=== PATIENT | male | born 1940 | race Asian ===

== ENCOUNTER 2017-01-04 06:20 | Day surgery (SDC) | payer OTHER ==
[~2017-01-04] VITALS: Ht 165.1 cm; Wt 63.0 kg
[2017-01-04] MEDS ORDERED: SODIUM CHLORIDE 0.9% 1,000 ML IV ONE ×2 (06:43→07:00)
[2017-01-04] MEDS ORDERED: SITA100 PO (06:59)
[2017-01-04] MEDS ORDERED: TIOT4MIS2 PO (06:59)
[2017-01-04] MEDS ORDERED: APIX5TAB PO (06:59)
[2017-01-04] MEDS ORDERED: FERR-89 PO (06:59)
[2017-01-04] MEDS ORDERED: AUD NEB (06:59)
[2017-01-04] MEDS ORDERED: BACTDSB PO (06:59)
[2017-01-04] MEDS ORDERED: GLUC100019 PO (06:59)
[2017-01-04] MEDS ORDERED: ASCO100T12 PO (06:59)
[2017-01-04] MEDS ORDERED: ADV500 IH (06:59)
[2017-01-04] MEDS ORDERED: OMEG-12 PO (06:59)
[2017-01-04] MEDS ORDERED: DILT60 PO (06:59)
[2017-01-04] MEDS ORDERED: TAMS0.4C32 PO (06:59)
[2017-01-04] MEDS ORDERED: CARV3 PO (06:59)
[2017-01-04] MEDS ORDERED: MONT10TA21 PO (06:59)
[2017-01-04] MEDS ORDERED: FLUT16H NASAL (06:59)
[2017-01-04] MEDS ORDERED: FAMO20 PO (06:59)
[2017-01-04] MEDS ORDERED: METF500T4 PO (06:59)
[2017-01-04] MEDS ORDERED: MULT1CAP32 PO (06:59)
[2017-01-04] MEDS ORDERED: CALC-51 PO (06:59)
[2017-01-04] MEDS ORDERED: FINA5TAB41 PO (06:59)
[2017-01-04] MEDS ORDERED: CHON250C PO (06:59)
[2017-01-04] MEDS ORDERED: BENZ-26 PO (06:59)
[2017-01-04] MEDS ORDERED: PRED10 PO (06:59)
[2017-01-04] MEDS ORDERED: MIDAZOLAM HCL 2 MG/2 ML VIAL ONE (07:08)
[2017-01-04] MEDS ORDERED: FentaNYL CITRATE-PF 100 MCG/2 ML VIAL ONE (07:08)
[2017-01-04 07:13] LABS: GLUCOSE,POINT OF CARE 107 MG/DL (70-110)
[2017-01-04] MEDS ORDERED: MethylPREDNISolone SOD SUCC 125 MG/2 ML VIAL ONE (08:02)
[2017-01-04] MEDS ORDERED: MethylPREDNISolone SOD SUCC 125 MG/2 ML VIAL IVP ONE (09:00)
[2017-01-04] MEDS ORDERED: BENZOCAINE 20% 50 MCG/SPRAY 57 GM TP ONE (17:50)
[2017-01-04] MEDS ORDERED: LIDOCAINE HCL 4% 50 ML SOLUTION TP ONE (17:50)
[2017-01-04] MEDS ORDERED: LIDOCAINE HCL 2% 30 ML JELLY TP ONE (17:50)
[2017-01-04] MEDS ORDERED: OXYGEN THERAPY IH SCH (20:00)
== END 2017-01-04 10:35 | disposition home or self-care (01) ==
LOC: SURGERY 06:20
PROVIDERS: ATTEND Internal Medicine Critical Care Medicine
DX: J38.4 Edema of larynx (principal); B37.0 Candidal stomatitis; J44.9 Chronic obstructive pulmonary disease, unspecified; E11.9 Type 2 diabetes mellitus without complications; M54.9 Dorsalgia, unspecified; Z98.890 Other specified postprocedural states; Z87.891 Personal history of nicotine dependence; Z85.118 Personal history of other malignant neoplasm of bronchus and lung; Z86.73 Personal history of transient ischemic attack (TIA), and cerebral infarction without residual deficits
CPT/HCPCS: 31623; 31624; 71010; 71250; 82962; 87015 ×2; 87070; 87101; 87147; 87186; 87205; 87220; 88108; 88312; 93005; J2250; J2930; J3010; J7030